=== PATIENT | female | born 1990 | race Caucasian/White ===

== ENCOUNTER 2025-03-08 14:55 | Emergency (ER) | payer OTHER, SELFPAY ==
[2025-03-08 15:01] VITALS: BP 103/70
[2025-03-08 15:20] LABS: Hematocrit 39.0 % (37.0-47.0); Hemoglobin 13.4 g/dL (12.0-16.0); Mean Corp Hgb Conc. 34.4 g/dL (33.0-37.0); Mean Corpuscular Volume 89.0 fL (81.0-99.0); Nucleated Red Blood Cells % 0 %; Platelet Count 270 10^3/uL (130-400); Red Cell Dist. Width 11.9 % (11.5-14.5)
[2025-03-08 15:30] LABS: HCG, Serum Qualitative Screen Negative
[2025-03-08 15:33] LABS: Blood Urea Nitrogen 11 mg/dl (7-17); Calcium 9.6 mg/dl (8.4-10.2); Carbon Dioxide 20 mmol/L (22-30); Chloride 108 mmol/L (98-107); Glucose 112 mg/dl (70-99); Lipase 233 U/L (23-300); Sodium 138 mmol/L (135-145); eGFR > 60.00
[2025-03-08 16:05] VITALS: BP 110/71
[2025-03-08 18:01] VITALS: BP 104/66
[2025-03-08 19:00] VITALS: BP 104/61
--- NOTE | 2025-03-08 19:14 | ED.GENMED ---
History of Present Illness
General
Chief Complaint: Seizure
Source: patient
Exam Limitations: none
Time Seen by Provider: 03/08/25 15:47
Nursing documentation reviewed up to this point in time: agreed with
History of Present Illness
History of Present Illness:
Note:
CHIEF COMPLAINT(S)
Abdominal pain.
HISTORY OF PRESENT ILLNESS
The patient is a 35-year-old female who presented with abdominal pain, which started this morning. She was in communication with her primary care physician, who ordered a CT scan. There is a history of intermittent belly pain. The patient
experienced intussusception two years ago, but it resolved spontaneously without surgical intervention after a few days of being NPO (nothing by mouth). She does not currently report surgical intervention for this condition. The patient has had an
appendectomy in the past. She describes the pain as significant, and it seems to occur repeatedly, though specific triggers or alleviating factors were not detailed.
PAST SURGICAL HISTORY
The patient has had an appendectomy.
PHYSICAL EXAM
General: Alert, no acute distress.
Skin: Warm, dry.
Head: Normocephalic, atraumatic.
Neck: Supple, trachea midline.
Eye Ears, nose, mouth and throat: Oral mucosa moist.
Cardiovascular: Normal peripheral perfusion, No edema.
Respiratory: Respirations are non-labored.
Gastrointestinal: Abdomen nondistended. Pain is noted, particularly in the right lower quadrant.
Back: Normal range of motion, Normal alignment.
Musculoskeletal: Normal ROM, normal strength.
Neurological: Alert and oriented to person, place, time, and situation, No focal neurological deficit observed.
Psychiatric: Cooperative, appropriate mood & affect.
PLAN
Proceed with a CT scan as ordered by the primary care physician to evaluate the cause of the abdominal pain.
DIFFERENTIAL DIAGNOSIS
The Differential Diagnosis includes, in no particular order and is not limited to:
1. Intussusception
2. Appendicitis
3. Ovarian cyst
4. Gastroenteritis
5. Bowel obstruction
6. Diverticulitis
7. Irritable bowel syndrome
8. Peptic ulcer disease
9. Gallstones
10. Ectopic
CARE-UPDATE
03/08/25 - 19:00
Patient is cleared for discharge with stable vitals. Abnormal abdominal pain persists with no acute findings on CT abdomen/pelvis. Differential includes seizure versus syncope, further evaluation needed via follow-up with primary care for continuous
monitoring and potentially a neurologic consult if episodes persist. Patient advised on seizure precautions and provided discharge instructions.
Disposition:
SUMMARY OF ENCOUNTER
The patient, a 35-year-old female, presented to the emergency department with abdominal pain that started suddenly this morning. Despite a history of intermittent abdominal pain and a previous episode of intussusception that resolved without
surgery, there were no acute findings on the CT scan. The pain was described as significant, particularly in the right lower quadrant. The CT scan was ordered by her primary care physician to evaluate the abdominal pains cause. The patient was
assessed, and potential differential diagnoses were considered, including intussusception, appendicitis, ovarian cyst, gastroenteritis, bowel obstruction, diverticulitis, irritable bowel syndrome, peptic ulcer disease, gallstones, and ectopic
.
DISPOSITION
Discharge
ASSESSMENT
Abdominal pain with a normal CT scan and no acute findings indicative of intussusception or other critical conditions.
PLAN
The patient is cleared for discharge with instructions to follow up with her primary care physician for continuous monitoring. If the symptoms persist, a potential neurologic consult is advised. The patient has been advised on seizure precautions.
PATIENT EDUCATION AND COUNSELING
The patient was counseled on the signs and symptoms that would necessitate an immediate return to the emergency department, including worsening pain or other new symptoms. She was also advised on seizure precautions and the importance of follow-up
with her primary care physician.
FOLLOW-UP INSTRUCTIONS
The patient should follow up with her primary care physician. In case of persistent symptoms, further evaluation including possibly neurological consultation, might be needed.
MEDICAL DECISION MAKING
-Complexity of Data Reviewed: Chronic conditions affecting care. Differential Diagnosis includes intussusception, appendicitis, ovarian cyst, gastroenteritis, bowel obstruction, diverticulitis, irritable bowel syndrome, peptic ulcer disease,
gallstones, ectopic .
-Data:
-Category 1: The CT scan was ordered and reviewed; no acute findings on the CT scan.
-Category 3: Consideration was given to follow up management and possible consultation with a neurologist if symptoms persist.
-Risk: Consideration of Admission/Observation: Escalation of care including admission/observation was considered given the complexity and risk of the patients presenting complaint. However, ultimately the patient is considered safe for outpatient
management with close follow-up as the work-up is reassuring, revealing no acute life/organ-threatening issues.
DIAGNOSIS
Abdominal pain, unspecified � R10.9
Past History
Past History
ED Past Medical History: Seizures and Other (MR, cerebral palsy, hydrocephalus with [employer] shunt, restless leg syndrome)
ED Past Surgical History: Brain ([employer] shunt)
Social History
Tobacco: Non-smoker
Alcohol: None
Personal: Single
Living: with family
Employment: Disabled
Family History
Family History: Negative Hypertension or Early CAD
Phy Exam
Physical Exam
Physical Exam:
.
Course
Orders/Labs/Results
Orders:
Orders
03/08/25 15:04
Electrocardiogram (*1) Urgent
Reason for Study: Syncope
03/08/25 15:05
EKG- Treatment ONCE
Test Result ONCE
03/08/25 15:07
Basic Metabolic Panel Urgent
Complete Blood Count/With Diff Urgent
HCG, Serum Qualitative Screen Urgent
Keppra (Levetiracetam) [S] Urgent
Lamictal [Lamotrigine (Lamictal)] [S] Urgent
Lipase Urgent
03/08/25 15:19
Electrocardiogram (*1) Urgent
Reason for Study: Syncope
EKG- Treatment ONCE
03/08/25 17:11
CT Abd/pelvis W Iv Cont Urgent
Comment: pt drank contrast for outpatient scan
Reason For Exam: rlq abd pain
03/08/25 19:13
Ketorolac [Toradol] 15 mg IV NOW STA
Abnormal Lab Results
03/08/25
15:07
Chloride 108 H mmol/L
(98-107)
Carbon Dioxide 20 L mmol/L
(22-30)
Glucose 112 H mg/dl
(70-99)
03/08/25 15:07
03/08/25 15:07
Vital Signs
Initial and Last Documented VS:
Initial Vital Signs
Pulse Resp
77 11
03/08/25 15:00 03/08/25 15:00
Last Documented Vital Signs
Temp Pulse Resp BP Pulse Ox
98.8 F 101 21 104/66 99
03/08/25 15:01 03/08/25 18:45 03/08/25 18:45 03/08/25 18:01 03/08/25 18:45
*Pulse Oximetry
SaO2: 99
Oxygen Mode of Delivery: Room air
Patient hypoxic: no
*Critical Care Note
Total Time (30-74mins, 75-104mins- exclusive of procedures): Not Applicable
ED Attending Note
-
Portions of this chart may have been created with voice recognition software.� Occasional wrong word or��sound alike� substitutions may have occurred due to the inherent limitations of voice recognition software.
Discharge Plan
Departure
Patient Disposition: Home (Routine Discharge)
Date of Disposition: 03/08/25
Time of Disposition: 19:15
Patient with high blood pressure during this ER visit?: No
Condition: Good
Discharge Problem:
Abdominal pain, Syncope
Prescriptions:
No Action
multivitamin [Lhw-Djvzce-Foouv] 1 EACH tablet
1 ea PO DAILY
lorazepam 1 MG tablet
1 mg PO Q4HPRN PRN (Reason: seizure longer then 5 mins. )
levetiracetam 500 MG tablet extended release 24 hr
1,500 mg PO DAILY
lamotrigine 25 MG tablet, chewable dispersible
100 mg PO DAILY
Patient Comments:
to start on 50 mg 12/04/13
pyridoxine (vitamin B6) [Vitamin B-6] 100 MG tablet
100 mg PO DAILY
lorazepam [Ativan] 0.5 mg Tablet
0.5 mg PO TID PRN (Reason: anxiety )
Referrals:
Nancy Robles MD [Family Provider, Family Practice]
Interventions
Interventions:
*Risk Screen - Suicide Last Done: 03/08/25 15:05
*General Assessment Last Done: 03/08/25 15:05
*Neglect/Abuse Screening Last Done: 03/08/25 15:05
*ED- Fall Risk Assessment Last Done: 03/08/25 15:04
*ED COVID-19 Vaccine History Last Done: 03/08/25 15:04
ED- Cardiac Assessment Last Done: 03/08/25 15:05
ED- Neurological Assessment Last Done: 03/08/25 15:05
ED- Pulmonary Assessment Last Done: 03/08/25 15:05
Discharge Date and Time
Print Language: ANDORRAN
[2025-03-08] MEDS: TORADOL 15 MG IV (19:28)
== END 2025-03-08 19:39 | disposition home or self-care (01) ==
LOC: EMR 14:55
PROVIDERS: EMERGENCY PHYSICIAN Emergency Medicine; FAMILY PHYSICIAN Family Medicine
DX: R55 Syncope and collapse (principal); R10.9 Unspecified abdominal pain; G80.9 Cerebral palsy, unspecified; Z98.2 Presence of cerebrospinal fluid drainage device; G25.81 Restless legs syndrome; Z90.49 Acquired absence of other specified parts of digestive tract
CPT/HCPCS: 99284; 96374; 36415; 74177; 80048; 80175; 80177; 83690; 84703; 85025; 93005; Q9967